=== PATIENT | female | born 1970 | race Caucasian/White ===

== ENCOUNTER 2024-07-13 15:57 | Outpatient (CLI) | payer BC, SELFPAY ==
--- NOTE | ~2024-07-13 | MM_ITS ---
EXAMINATION: MM screening [facility] BI [facility] HISTORY: Screening TECHNIQUE: Craniocaudal and mediolateral oblique 3-D tomosynthesis images were obtained and synthetic 2-D images were generated. CAD analysis was submitted and interpreted. COMPARISON: No prior mammogram is available for comparison at this institution. BREAST PARENCHYMAL COMPOSITION: Not dense: There are scattered areas of fibroglandular density. FINDINGS: There is no evidence of suspicious mass, calcification, or architectural distortion to sugg est malignancy in either breast. There has been no suspicious interval change. IMPRESSION: 1. No mammographic evidence of malignancy. 2. Recommend routine screening mammography in one year. BI-RADS Category 1: Negative Reviewed, dictated and finalized at location B.
--- OUTSIDE RECORDS SUMMARY | 2024-07-13 16:01 | XMS_ITS | Clinical Summary ---
Author Organization [facility] Physician Office Building [address] [place] [id number] Care Team Providers Care Bit Sander Name Role Phone Pako Pina MD Primary Care Provider [phone] Allergies Active Allergy Reactions Criticality Noted Date Comments Levofloxacin Other (See comments) Low 06/17/2023 N/a Medications Mimvey 1-0.5 mg per tablet Take 1 tablet by mouth daily 4 Active omega-3 fatty acids-fish oil 300-1,000 mg capsule Take 2 capsules (2 g total) by mouth daily Active magnesium oxide 400 mg magnesium capsule Take by mouth Active Synthroid 137 mcg tablet TAKE 1 TABLET BY MOUTH EVERY MORNING BEFORE BREAKFAST 90 tablet 2 5 Active Active Problems Problem Noted Date Diagnosed Date Acquired hypothyroidism 06/27/2023 Assessment & Plan (10/04/2023 4:04 PM CDT): Chronic, unknown status Clinically look over treatment Pt currently on Synthroid 150 mcg oral daily Plan to recheck thyroid labs today and further plans based on it Assessment & Plan (06/27/2023 12:17 PM PUBLIC TRANSPORTATION INSPECTOR): Chronic, unknown status - continue Synthroid 150 mcg oral daily in am - empty stomach Instructions for taking Synthroid Take thyroid pill all by itself Take thyroid pill one hour before food or 2 to 3 hours after food Heat, humidity, and direct sunlight will cause a loss of potency Never store thyroid pill in the bathroom The medication should be taken daily. If one or more pills are missing in a week, they can be taken all together at once, making sure at the end of the week, 7 tabs have been taken. Repeat thyroid function test, include TPO ab and further plans based on it Class 1 obesity due to exces s calories without serious comorbidity with body mass index (BMI) of 31.0 to 31.9 in adult 06/27/2023 Assessment & Plan (10/04/2023 4:04 PM CDT): Chronic, improving slowly , but still above goal Encouraged to keep working on healthy lifestyle habits and stay consistent Assessment & Plan (06/27/2023 12:15 PM PUBLIC TRANSPORTATION INSPECTOR): Counseled on healthy lifestyle habits Encounters Date Type Department Care Team Description 06/05/2024 8:15 AM PUBLIC TRANSPORTATION INSPECTOR - 06/05/2024 11:59 PM PUBLIC TRANSPORTATION INSPECTOR [place] [address] 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 Discharge Disposition: Discharge to home or self care 06/05/2024 8:15 AM PUBLIC TRANSPORTATION INSPECTOR Lab [facility] Outpatient Lab at [address] [address] Acquired hypothyroidism (Primary Dx) from Last 3 Months Medical History Medical History Date Comments Hypothyroidism Family History Medical History Relation Name Comments Hypertension Father Lung cancer Mother Relation Name Status Comments Father Mother Social History Tobacco Use Types Packs/Day Years Used Date Smoking Tobacco: Never Smokeless Tobacco: Never Tobacco Cessation:Counseling Given: Not Answered PHQ-2 Answer Date Recorded PHQ-2 Total Score (If total score is 3 or more points, staff should administer the PHQ-9) 0 10/04/2023 Comments Unknown Sex and Gender Information Value Date Recorded Sex Assigned at Not on file Legal Sex Female 3:10 PM PUBLIC TRANSPORTATION INSPECTOR Gender Identity Not on file Sexual Orientation Not on file Obstetrics History Last Filed Vital Signs Vital Sign Reading Time Taken Comments Blood Pressure 124/80 10/04/2023 3:44 PM CDT Pulse 100 10/04/2023 3:44 PM CDT Temperature - - Respiratory Rate 16 10/04/2023 3:44 PM CDT Oxygen Saturation - - Inhaled Oxygen Concentration - - Weight 90.7 kg (200 lb) 10/04/2023 3:44 PM CDT Height 170.2 cm (5' 7 ) 10/04/2023 3:44 PM CDT Body Mass Index 31.32 10/04/2023 3:44 PM CDT Plan of Treatment Health Maintenance Due Date Last Done Comments Breast Cancer Screening-Mammogram 1968 Cervical Cancer Screening 1968 Colon Cancer Screening-Colonoscopy 1968 Hepatitis C Screening 1968 Hepatitis B Screening 01/17/1986 Regular Well Visit/Exam 18-64 01/17/1986 Zoster Vaccine (1 of 2) 01/17/2018 Covid-19 Vaccine (5 - 2023- season) 2023 11/15/2021, 03/28/2021, 08/05/2020, Additional history exists Influenza Vaccine (#1) 2023 01/31/2023, 2020 Depression Screening 10/03/2024 10/04/2023 DTaP/Tdap/Td Vaccine (2 - Td or Tdap) 05/16/2030 05/16/2020 Pneumococcal vaccine <65 Aged Out No longer eligible based on patient's age to complete this topic Procedures Procedure Name Priority Date/Time Associated Diagnosis Comments T4, FREE Routine 06/05/2024 3:03 PM PUBLIC TRANSPORTATION INSPECTOR 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70 ng/dL Blood 06/05/2024 3:03 PM PUBLIC TRANSPORTATION INSPECTOR 06/05/2024 7:50 PM PUBLIC TRANSPORTATION INSPECTOR us Annamaria Castellanos MD LAB BLOOD ORDERABLE S Final Result [place] [id number] [address] Department [place] [address] from Last 3 Months Insurance [employer] Care Teams Bit Sander Relationship Specialty Start Date End Date Pako Pina MD [facility] [place] [address] PCP - General Family Medicine 06/15/23
--- OUTSIDE RECORDS SUMMARY | 2024-07-13 16:01 | XMS_ITS | Referral Summary ---
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 Discharge Disposition: Discharge to home or self care 06/05/2024 8:15 AM APPOINTMENT SPECIALIST Lab [facility] Outpatient Lab at [address] [address] Acquired hypothyroidism (Primary Dx) from Last 3 Months Allergies Active Allergy Reactions Criticality Noted Date [...] it Assessment & Plan (06/27/2023 12:17 PM APPOINTMENT SPECIALIST): Chronic, unknown status - continue Synthroid 150 [...] consistent Assessment & Plan (06/27/2023 12:15 PM APPOINTMENT SPECIALIST): Counseled on healthy lifestyle habits Social History Tobacco Use Types Packs/Day Years Used Date Smoking Tobacco: Never Smokeless Tobacco: Never Tobacco Cessation:Counseling Given: Not Answered PHQ-2 Answer Date Recorded PHQ-2 Total Score (If total score is 3 or more points, staff should administer the PHQ-9) 0 10/04/2023 Comments Unknown Sex and Gender Information Value Date Recorded Sex Assigned at Not on file Legal Sex Female 3:10 PM APPOINTMENT SPECIALIST Gender Identity Not on file Sexual Orientation Not on file Last Filed Vital Signs Vital Sign Reading [...] 10/04/2023 3:44 PM CDT Plan of Treatment Not on file Procedures Procedure Name Priority Date/Time Associated Diagnosis Comments T4, FREE Routine 06/05/2024 3:03 PM APPOINTMENT SPECIALIST 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 Co de Phone Number [place] [phone] [address] Department [place], [place] [id number] * T4, free (06/05/2024 3:03 PM APPOINTMENT SPECIALIST) Free T4 1.12 0.90 - 1.70 ng/dL Blood 06/05/2024 3:03 PM APPOINTMENT SPECIALIST 06/05/2024 7:50 PM APPOINTMENT SPECIALIST us Annamaria Castellanos MD LAB BLOOD ORDERABLE S Final Result Performing Organization Address [facility] Co de Phone Number [place] [phone] [address] [facility] [place] [address] from Last 3 Months Insurance [facility] ACCESS CHOICE Care Teams Doughnut Glazier Relationship Specialty Start Date End Date Pako Pina MD [address] [place] [address] PCP - General Family Medicine 06/15/23
== END 2024-07-13 15:58 | disposition home or self-care (01) ==
LOC: ANHIMG 15:59
PROVIDERS: PCP Nurse Practitioner; Visit Provider Obstetrics & Gynecology
DX: Z12.31 Encounter for screening mammogram for malignant neoplasm of breast (principal); Z98.82 Breast implant status
CPT/HCPCS: 77063; 77067